=== PATIENT | male | born 1960 | race Caucasian/White ===

== ENCOUNTER → 2019-06-24 | Outpatient (CLI) | payer OTHER | LOC: M.WC 09:34 | DX: L98.491 Non-pressure chronic ulcer of skin of other sites limited to breakdown of skin (principal); I10 Essential (primary) hypertension; J45.909 Unspecified asthma, uncomplicated; Z87.891 Personal history of nicotine dependence ==

== ENCOUNTER → 2019-07-01 | Outpatient (CLI) | payer OTHER | LOC: M.WC 04:51 | DX: L98.491 Non-pressure chronic ulcer of skin of other sites limited to breakdown of skin (principal); S50.812D Abrasion of left forearm, subsequent encounter; S40.212D Abrasion of left shoulder, subsequent encounter; I10 Essential (primary) hypertension; J45.909 Unspecified asthma, uncomplicated; Z87.891 Personal history of nicotine dependence; X58.XXXD Exposure to other specified factors, subsequent encounter ==

== ENCOUNTER → 2019-07-04 | Outpatient (CLI) | payer OTHER | LOC: M.WC 00:45 | DX: L98.491 Non-pressure chronic ulcer of skin of other sites limited to breakdown of skin (principal); S40.212D Abrasion of left shoulder, subsequent encounter; S50.812D Abrasion of left forearm, subsequent encounter; S50.312D Abrasion of left elbow, subsequent encounter; I10 Essential (primary) hypertension; J45.909 Unspecified asthma, uncomplicated; Z87.891 Personal history of nicotine dependence; X58.XXXD Exposure to other specified factors, subsequent encounter ==

== ENCOUNTER → 2019-07-08 | Outpatient (CLI) | payer OTHER | LOC: M.WC 01:10 | DX: L98.491 Non-pressure chronic ulcer of skin of other sites limited to breakdown of skin (principal); S40.212D Abrasion of left shoulder, subsequent encounter; S60.511D Abrasion of right hand, subsequent encounter; I10 Essential (primary) hypertension; J45.909 Unspecified asthma, uncomplicated; Z87.891 Personal history of nicotine dependence; V29.9XXD Motorcycle rider (driver) (passenger) injured in unspecified traffic accident, subsequent encounter ==

== ENCOUNTER → 2019-07-15 | Outpatient (CLI) | payer OTHER | LOC: M.WC 02:35 | DX: S40.212D Abrasion of left shoulder, subsequent encounter (principal); S50.312D Abrasion of left elbow, subsequent encounter; S60.511D Abrasion of right hand, subsequent encounter; J45.909 Unspecified asthma, uncomplicated; I10 Essential (primary) hypertension; Z87.891 Personal history of nicotine dependence; V29.9XXD Motorcycle rider (driver) (passenger) injured in unspecified traffic accident, subsequent encounter ==

== ENCOUNTER → 2019-07-22 | Outpatient (CLI) | payer OTHER | LOC: M.WC 04:33 | DX: S40.212D Abrasion of left shoulder, subsequent encounter (principal); S40.812D Abrasion of left upper arm, subsequent encounter; L98.491 Non-pressure chronic ulcer of skin of other sites limited to breakdown of skin; I10 Essential (primary) hypertension; J45.909 Unspecified asthma, uncomplicated; Z87.891 Personal history of nicotine dependence; V29.9XXD Motorcycle rider (driver) (passenger) injured in unspecified traffic accident, subsequent encounter ==

== ENCOUNTER → 2019-07-29 | Outpatient (CLI) | payer OTHER | LOC: M.WC 01:49 | DX: L98.491 Non-pressure chronic ulcer of skin of other sites limited to breakdown of skin (principal); S40.212D Abrasion of left shoulder, subsequent encounter; I10 Essential (primary) hypertension; J45.909 Unspecified asthma, uncomplicated; Z87.891 Personal history of nicotine dependence; V29.9XXD Motorcycle rider (driver) (passenger) injured in unspecified traffic accident, subsequent encounter ==

== ENCOUNTER → 2019-08-05 | Outpatient (CLI) | payer OTHER | LOC: M.WC 04:39 | DX: L98.491 Non-pressure chronic ulcer of skin of other sites limited to breakdown of skin (principal); S40.212D Abrasion of left shoulder, subsequent encounter; I10 Essential (primary) hypertension; J45.909 Unspecified asthma, uncomplicated; Z87.891 Personal history of nicotine dependence; V89.2XXD Person injured in unspecified motor-vehicle accident, traffic, subsequent encounter ==

== ENCOUNTER → 2019-08-12 | Outpatient (CLI) | payer OTHER | LOC: M.WC 01:33 | DX: L98.491 Non-pressure chronic ulcer of skin of other sites limited to breakdown of skin (principal); S40.212D Abrasion of left shoulder, subsequent encounter; I10 Essential (primary) hypertension; J45.909 Unspecified asthma, uncomplicated; Z87.891 Personal history of nicotine dependence; X58.XXXD Exposure to other specified factors, subsequent encounter ==

== ENCOUNTER → 2019-08-19 | Outpatient (CLI) | payer OTHER | LOC: M.WC 01:31 | DX: L98.491 Non-pressure chronic ulcer of skin of other sites limited to breakdown of skin (principal); S40.212D Abrasion of left shoulder, subsequent encounter; I10 Essential (primary) hypertension; J45.909 Unspecified asthma, uncomplicated; Z87.891 Personal history of nicotine dependence; X58.XXXD Exposure to other specified factors, subsequent encounter ==

== ENCOUNTER → 2019-08-26 | Outpatient (CLI) | payer OTHER | LOC: M.WC 01:05 | DX: L98.491 Non-pressure chronic ulcer of skin of other sites limited to breakdown of skin (principal); S40.212D Abrasion of left shoulder, subsequent encounter; I10 Essential (primary) hypertension; J45.909 Unspecified asthma, uncomplicated; Z87.891 Personal history of nicotine dependence; X58.XXXD Exposure to other specified factors, subsequent encounter ==

== ENCOUNTER → 2019-09-09 | Outpatient (CLI) | payer OTHER | LOC: M.WC 04:49 | DX: L98.498 Non-pressure chronic ulcer of skin of other sites with other specified severity (principal); S40.212D Abrasion of left shoulder, subsequent encounter; I10 Essential (primary) hypertension; J45.909 Unspecified asthma, uncomplicated; Z87.891 Personal history of nicotine dependence; V89.2XXD Person injured in unspecified motor-vehicle accident, traffic, subsequent encounter ==